=== PATIENT | male | born 1940 | race Caucasian/White ===

== ENCOUNTER → 2018-08-08 12:48 | Outpatient (CLI) | payer MEDICARE, OTHER, SELFPAY ==
--- NOTE | 2018-08-08 | DI.RAD.S_ITS ---
PROCEDURE: XR LUMBAR SPINE 2-3V INDICATIONS: DORSALGIA TECHNIQUE: 3 views of the lumbar spine were acquired. COMPARISON: [facility], CR, XR THORACIC SPINE 3V, 08/08/2018, 12:59. FINDINGS: Bones: 5 [id number] vertebrae are present. There is normal bony alignment. No vertebral body compression fractures. No suspicious bony lesions. The degenerative disc disease and facet osteoarthritis along the lumbosacral line is relatively mild in severity over the upper two thirds but moderate to moderately severe over the lower third and best seen at L4-5 and L5-S1. Slight retrolisthesis of L5 on S1 is associated, grade 1, due to ligamentous laxity. Soft tissues: Overlying bowel gas pattern is normal. No suspicious soft tissue calcifications. IMPRESSION: Low lumbosacral spine moderately severe L4-5 and L5-S1 degenerative disc disease and facet osteoarthritis with likelihood of significant spinal and foraminal stenosis at those 2 levels. Dictated by: Keyshawn Melton M.D. on 08/08/2018 at 15:20 Approved by: Keyshawn Melton M.D. on 08/08/2018 at 15:21
--- NOTE | 2018-08-08 | DI.RAD.S_ITS ---
PROCEDURE: XR THORACIC SPINE 3V INDICATIONS: DORSALGIA TECHNIQUE: 3 views of the thoracic spine were acquired. COMPARISON: None. FINDINGS: Bones: No fractures or dislocations. No suspicious bony lesions. 12 pairs of ribs are noted, and appear intact where visualized. Soft tissues: No paravertebral stripe thickening. IMPRESSION: There is a moderate degree of degenerative disc disease and facet osteoarthritis along the lumbosacral spine, and no sign of compression fracture or subluxation. Dictated by: Keyshawn Melton M.D. on 08/08/2018 at 15:20 Approved by: Keyshawn Melton M.D. on 08/08/2018 at 15:20
== END ==
PROVIDERS: PCP Physician Assistant; Visit Provider Physician Assistant
DX: M54.89 Other dorsalgia (principal); M51.37 Other intervertebral disc degeneration, lumbosacral region; M47.817 Spondylosis without myelopathy or radiculopathy, lumbosacral region
CPT/HCPCS: 72072; 72100

== ENCOUNTER → 2019-01-08 09:54 | Outpatient (CLI) | payer MEDICARE, OTHER, SELFPAY ==
--- NOTE | 2019-01-08 10:13 | DI.CT.S_ITS ---
PROCEDURE: CT MASTOID TEMPORAL INDICATIONS: MRI demonstrated mesial fluid accumulation, left greater than right. Unspecified disorder of middle ear and mastoid, bi COMPARISON: [facility], MR, BRAIN WITHOUT CONTRAST, 05/02/2017, 7:37. TECHNIQUE: Noncontrast 0.6 mm thick direct axial and coronal sections acquired through each temporal bone separately. FINDINGS: Image quality: Excellent. RIGHT: External auditory canal: Canal has a normal appearance. Middle ear: The middle ear structures, including the ossicles and tympanic membrane, appear normal. No abnormal fluid or soft tissue density. Inner ear: Inner ear is normally formed and appears unremarkable. Facial nerve appears normal throughout is course. Mastoids: Mastoid air cells are clear. LEFT: External auditory canal: Canal has a normal appearance. Middle ear: The middle ear structures, including the ossicles and tympanic membrane, appear normal. No abnormal fluid or soft tissue density. Inner ear: Inner ear is normally formed and appears unremarkable. Facial nerve appears normal throughout its course. Mastoids: Mastoid air cells are clear. MISCELLANEOUS: Visualized surrounding bones appear unremarkable. Visualized intracranial structures, including the cerebellopontine angle cisterns, appear normal. Atherosclerotic calcification is noted. IMPRESSION: The abnormal mastoid fluid that was seen on the prior MRI is no longer seen. Dictated by: Jose E Morales M.D. on 01/08/2019 at 10:33 Approved by: Jose E Morales M.D. on 01/08/2019 at 10:36
== END ==
PROVIDERS: PCP Internal Medicine; Visit Provider Internal Medicine
DX: H74.93 Unspecified disorder of middle ear and mastoid, bilateral (principal)
CPT/HCPCS: 70480

== ENCOUNTER → 2019-05-15 13:50 | Outpatient (CLI) | payer MEDICARE, OTHER, SELFPAY ==
--- NOTE | 2019-05-15 | DI.US.S_ITS ---
PROCEDURE: US ABDOMEN LIMITED INDICATIONS: BILATERAL INGUINAL HERNIA WITHOUT OBSTRUCTION TECHNIQUE: Real-time focused scanning was performed of the inguinal region, with image documentation. COMPARISON: [facility], CT, KIDNEY/ URETER/BLADDER, 08/25/2015, 8:55. FINDINGS: Within the right groin, at the area of the palpable lump, there is a fluid collection seen that indicates that the abdominal ascites. Also the right groin, there is a fat-containing reducible direct inguinal hernia. Within the left groin, there is a fat-containing, reducible indirect hernia. IMPRESSION: At the area of the palpable lump within the right groin, there is a fluid collection seen, which is attributed to herniated ascites fluid. Bilateral reducible fat-containing inguinal hernias are also seen. If it would be helpful for clinical management decision making, please consider a dedicated CT of the pelvis, with IV and oral contrast for further evaluation. Dictated by: Jose E Morales M.D. on 05/15/2019 at 16:08 Approved by: Jose E Morales M.D. on 05/15/2019 at 16:11
== END ==
PROVIDERS: PCP Internal Medicine; Visit Provider Specialist
DX: K40.20 Bilateral inguinal hernia, without obstruction or gangrene, not specified as recurrent (principal)
CPT/HCPCS: 76705

== ENCOUNTER → 2019-12-26 13:05 | Outpatient (CLI) | payer MEDICARE, OTHER, SELFPAY ==
[2019-12-26 15:28] LABS: Prostate Specific Antigen 1.31 ng/mL (0.10-4.00)
== END ==
PROVIDERS: PCP Internal Medicine; Referring Provider Specialist; Visit Provider Specialist
DX: R97.20 Elevated prostate specific antigen [PSA] (principal)
CPT/HCPCS: 36415; 84153

== ENCOUNTER → 2020-01-09 10:13 | Outpatient (CLI) | payer MEDICARE, OTHER, SELFPAY ==
--- NOTE | 2020-01-09 | DI.RAD.S_ITS ---
PROCEDURE: XR HIP W PEL IF DONE LT 2V INDICATIONS: LEFT HIP PAIN TECHNIQUE: AP pelvis with lateral view(s) of the left hip(s). COMPARISON: None. FINDINGS: Bones: No fractures or dislocations. Pelvic ring appears intact. No suspicious bony lesions. There is asymmetric hip joint osteoarthritis, moderate on the right and mild on the left Soft tissues: The visualized bowel gas pattern is normal. No suspicious soft tissue calcifications. IMPRESSION: Asymmetric right greater than left hip joint osteoarthritis, no trauma found. Dictated by: Keyshawn Melton M.D. on 01/09/2020 at 10:55 Approved by: Keyshawn Melton M.D. on 01/09/2020 at 10:56
== END ==
PROVIDERS: PCP Internal Medicine; Referring Provider Internal Medicine; Visit Provider Internal Medicine
DX: M25.552 Pain in left hip (principal); M16.0 Bilateral primary osteoarthritis of hip
CPT/HCPCS: 73502

== ENCOUNTER → 2020-07-01 12:45 | Outpatient (CLI) | payer MEDICARE, OTHER, SELFPAY ==
[2020-07-01 17:07] LABS: Prostate Specific Antigen 1.62 ng/mL (0.10-4.00)
== END ==
PROVIDERS: PCP Student in an Organized Health Care Education/Training Program; Referring Provider Specialist; Visit Provider Specialist
DX: N40.0 Benign prostatic hyperplasia without lower urinary tract symptoms (principal)
CPT/HCPCS: 36415; 84153; 87086

== ENCOUNTER → 2023-05-04 11:23 | Outpatient (CLI) | payer MEDICARE, OTHER, SELFPAY ==
--- NOTE | 2023-05-04 11:28 | DI.RAD.S_ITS ---
PROCEDURE: XR CERVICAL SPINE 2V OR 3V INDICATIONS: NECK SHOULDER PAIN TECHNIQUE: 30 view(s) of the cervical spine were acquired. COMPARISON: None. FINDINGS: Bones: No fractures or dislocations to the C7 level. Straightening of normal cervical lordosis. There are multilevel degenerative changes of the cervical spine with facet and uncovertebral arthropathy, disc height loss with degenerative endplate changes and spurring. This is most pronounced at C5-C6. The lateral masses of C1 appear intact on the odontoid view. No suspicious bony lesions. Soft tissues: No prevertebral soft tissue swelling. Median sternotomy wires. Atherosclerotic vascular calcifications. IMPRESSION: Multilevel degenerative changes of the cervical spine, most pronounced at C5-C6. Dictated by: Jimmy Asif M.D. on 05/04/2023 at 13:07 Approved by: Jimmy Asif M.D. on 05/04/2023 at 13:10
--- NOTE | 2023-05-04 11:28 | DI.RAD.S_ITS ---
PROCEDURE: XR SHOULDER RT MIN 2V INDICATIONS: NECK SHOULDER PAIN TECHNIQUE: 3 views of the shoulder were acquired. COMPARISON: None. FINDINGS: Bones: No fractures or dislocations. Moderate acromioclavicular and mild glenohumeral joint degeneration. No suspicious bony lesions. Visualized ribs appear intact. Soft tissues: No suspicious soft tissue calcifications. Atherosclerotic vascular calcifications. Median sternotomy wires. Surgical clips projecting over the mediastinum. IMPRESSION: No acute osseous abnormalities. Moderate acromioclavicular and mild glenohumeral joint osteoarthritis. Dictated by: Jimmy Asif M.D. on 05/04/2023 at 13:01 Approved by: Jimmy Asif M.D. on 05/04/2023 at 13:02
== END ==
LOC: RAD 11:25
PROVIDERS: PCP Internal Medicine; Referring Provider Physician Assistant; Visit Provider Physician Assistant
DX: M43.6 Torticollis (principal); M25.611 Stiffness of right shoulder, not elsewhere classified; M19.011 Primary osteoarthritis, right shoulder; M47.812 Spondylosis without myelopathy or radiculopathy, cervical region
CPT/HCPCS: 72040; 73030

== ENCOUNTER 2024-07-10 10:42 | Emergency (ER) | payer MEDICARE, OTHER, SELFPAY ==
[2024-07-10] VITALS (17 sets, daily range): BP systolic 108–142; BP diastolic 58–92; PULSE 66–124; RESP 14–30; TEMP 36.3; O2SAT 96–100; BMI 24.3
--- NOTE | 2024-07-10 11:15 | DI.RAD.S_ITS ---
PROCEDURE: XR CHEST 1V INDICATIONS: chest pain TECHNIQUE: One view of the chest was acquired. COMPARISON: None. FINDINGS: Surgical changes and devices: Median sternotomy wires are seen. Surgical clips also noted. Lungs and pleura: Mild pulmonary vascular congestion. No definite focal infiltrate. No pleural effusions or pneumothorax. Mediastinum: Mediastinal contours appear normal. Heart size is normal. Bones and chest wall: No suspicious bony lesions. Overlying soft tissues appear unremarkable. IMPRESSION: Mild congestion. No focal infiltrate, pleural effusion or pneumothorax. Dictated by: Edwin Morris M.D. on 07/10/2024 at 12:11 Approved by: Edwin Morris M.D. on 07/10/2024 at 12:12
--- NOTE | 2024-07-10 11:15 | EKG_ITS ---
[id number] [place] [address] Test Date: 2024-07-10 Pat Name: Thanh Starr Department: Room: Gender: Male District Captain: DAVONTE : 1940 Requested By: Order Number: [id number] Reading MD: José Torres MD Measurements Intervals [place] Rate: 104 P: PA: QRS: 64 QRSD: 114 T: 243 QT: 392 QTc: 515 Interpretive Statements Atrial fibrillation with rapid ventricular response (new) Incomplete left bundle branch block (new) ST & T wave abnormality, consider inferolateral ischemia Electronically Signed On 07-10-2024 16:41:08 PDT by José Torres MD
[2024-07-10 11:53] LABS: Add Manual Diff / Slide Review NO; Basophils Absolute Auto 100 /uL (0-100); Basophils Percent Auto 0.8 % (0-2); Eosinophils Absolute Auto 0 /uL (0-450); Hematocrit 38.7 % (41-53); Hemoglobin 12.8 g/dL (13.5-17.5); Lymphocytes Absolute Auto 300 /uL (1100-4500); Lymphocytes Percent Auto 2.2 % (25-40); Mean Corpuscular HGB Conc 33.1 % (30-36); Mean Corpuscular Hemoglobin 31.4 PG (26-34); Mean Corpuscular Volume 94.9 fL (80-100); Monocytes Absolute Auto 1000 /uL (0-900); Monocytes Percent Auto 6.4 % (3-14); Neutrophils Absolute Auto 14200 /uL (1500-7000); Neutrophils Percent Auto 90.6 % (50-75); Platelet Count 391 X10^3/uL (150-400); Red Blood Cell Count 4.08 X10^6/uL (4.5-5.9); Red Cell Distribution Width 14.7 % (11.6-14.8); White Blood Cell Count 15.7 X10^3/uL (4.5-11.0)
--- NOTE | 2024-07-10 11:58 | ED_ITS ---
HPI - General Adult General Chief complaint: Abdominal Pain Stated complaint: Severe Stomach pain Time Seen by Provider: 07/10/24 11:43 History of Present Illness HPI narrative: 83-year-old gentleman history of atrial fibrillation currently not anticoagulated and rate controlled with metoprolol, peritoneal dialysis, coronary disease with stent most recently placed in March of 2024 Rudy Rowe, heart failure with echocardiogram in April of this year showing an ejection fraction at 45-50% Presents complaining of nausea and vomiting vomiting for the last 12 hours. He states he is not having chest pain has lots of gas that he is passing from below. He has not had any blood in his vomitus or stool. He was discharged from [facility] on May 23 after having a lower GI bleed. He had an EGD at that time that showed gastritis duodenitis and esophagitis no. Her continued with his home peritoneal dialysis when hospitalized, started on Brilinta therapy for his recent drug-eluting stent in March of 2024. He was given iron infusions and instructed to follow up with Nephrology. He has not complaining of fevers, cough, no chest pain, does not sense that he is tachycardic, no increase in lower extremity edema, he did do his usual peritoneal dialysis last night Related Data Home Medications Medication Instructions Recorded Confirmed aspirin 81 mg tablet,delayed 81 mg PO DAILY 01/16/20 08/05/20 release (Adult Low Dose Aspirin) atorvastatin 40 mg tablet 40 mg PO DAILY 01/16/20 08/05/20 hydralazine 50 mg tablet 50 mg PO TID 01/16/20 08/05/20 isosorbide mononitrate 60 mg 60 mg PO DAILY 01/16/20 08/05/20 tablet,extended release 24 hr losartan 100 mg tablet 100 mg PO DAILY 01/16/20 08/05/20 metoprolol succinate 100 mg 100 mg PO DAILY 01/16/20 08/05/20 tablet,extended release 24 hr Allergies Allergy/AdvReac Type Severity Reaction Status Date / Time SEAFOOD Allergy Unknown Uncoded 07/10/24 12:54 Review of Systems Review of Systems Narrative: Pertinent positive and negative findings as per HPI Patient History Medical History Peritoneal dialysis catheter in place End stage renal failure on dialysis Prostate cancer Prostate cancer UTI (urinary tract infection) Male erectile disorder End stage renal disease Surgical History H/O radical retropubic prostatectomy Social History Smoking Status: Never smoker Smoking Status: Never smoker Exam Initial Vital Signs Initial Vital Signs: Vital Signs Pulse Rate 66 07/10/24 10:54 Pulse Oximetry 99 07/10/24 10:54 General: Chronically ill-appearing, in no acute distress. Able to give a complete and coherent history. HEENT: Moist mucous membranes, normal sclera with reactive pupils, Respiratory: Lungs with minor basilar crackles, no significant wheeze, fall and symmetrical air movement, no rhonchi Cardiac: Irregular, tachycardic no obvious murmurs Abdomen: Soft, mild distention, he does not have significant abdominal pain, dialysis catheter site looks appropriate. Peritoneal fluid is obtained through the peritoneal dialysis catheter Skin: Pale, reasonably perfused Neurologic: Grossly neurologically intact with no obvious asymmetries or abnormalities Extremities: No trauma, no lower extremity Psych: Cooperative, appropriate insight and affect Course Orders Ordered: Discontinued Medications Hydromorphone HCl (Hydromorphone 0.5 Mg Inj) 0.5 mg IV Q15MIN PRN PRN Reason: Pain, Last Admin: 07/10/24 14:02 Dose: 0.5 mg Documented By: CORRY Magnesium Sulfate (Magnesium Sulfate) 2 gm in 50 mls @ 150 mls/hr IV NOW ONE Stop: 07/10/24 12:46 Last Infusion: 07/10/24 13:19 Dose: Infused Documented By: CORRY Co-signed By: MACK Admin: 07/10/24 12:55 Dose: 150 mls/hr Documented By: CORRY Co-signed By: IDANIA POTASSIUM CHLORIDE IN WATER (Potassium Cl 10 Meq/100 Ml Karena) 10 meq in 100 mls @ 100 mls/hr IV Q1H JUSTA Stop: 07/10/24 16:29 Last Infusion: 07/10/24 16:26 Dose: 100 mls/hr Documented By: Admin: 07/10/24 16:11 Dose: 100 mls/hr Documented By: Infusion: 07/10/24 16:11 Dose: Infused Documented By: Admin: 07/10/24 15:11 Dose: 100 mls/hr Documented By: Infusion: 07/10/24 15:11 Dose: Infused Documented By: Admin: 07/10/24 14:15 Dose: 100 mls/hr Documented By: Infusion: 07/10/24 14:05 Dose: Infused Documented By: Admin: 07/10/24 13:05 Dose: 100 mls/hr Documented By: CORRY Cefepime HCl 2 gm/ Sodium (Chloride) 100 mls @ 200 mls/hr IV NOW ONE Stop: 07/10/24 12:28 Last Infusion: 07/10/24 13:40 Dose: Infused Documented By: Admin: 07/10/24 13:05 Dose: 200 mls/hr Documented By: CORRY Vancomycin HCl 1,000 mg/ (Sodium Chloride) 250 mls @ 250 mls/hr IV NOW ONE Stop: 07/10/24 13:44 Last Admin: 07/10/24 15:02 Dose: Not Given Documented By: CORRY Vancomycin HCl 1,000 mg/ (Sodium Chloride) 250 mls @ 250 mls/hr IV NOW ONE Stop: 07/10/24 15:44 Last Infusion: 07/10/24 16:10 Dose: Infused Documented By: Admin: 07/10/24 15:01 Dose: 250 mls/hr Documented By: CORRY Metoprolol Tartrate (Metoprolol Ir 25 Mg Tablet) 25 mg PO NOW ONE Stop: 07/10/24 12:28 Last Admin: 07/10/24 12:54 Dose: 25 mg Documented By: CORRY Vancomycin HCl (Vancomycin Per Pharmacy) 1 request MISC NOW ONE Stop: 07/10/24 12:29 Last Admin: 07/10/24 15:16 Dose: Not Given Documented By: CORRY Vital Signs Vital signs: Vital Signs - 8 hr 07/10/24 10:54 07/10/24 11:00 07/10/24 11:12 Temperature 97.4 F L Pulse Rate 66 109 H 124 H Respiratory Rate 30 H 20 Blood Pressure 142/92 H Pulse Oximetry 99 Oxygen Delivery Method Room Air 07/10/24 11:30 07/10/24 12:00 07/10/24 12:30 Temperature Pulse Rate 98 H 102 H 99 H Respiratory Rate 30 H 19 Blood Pressure Pulse Oximetry 99 98 97 Oxygen Delivery Method 07/10/24 12:41 07/10/24 12:41 07/10/24 13:00 Temperature Pulse Rate 103 H 106 H Respiratory Rate 14 Blood Pressure 115/58 L Pulse Oximetry Oxygen Delivery Method 07/10/24 13:30 07/10/24 13:41 07/10/24 13:41 Temperature Pulse Rate 96 H 97 H Respiratory Rate 17 20 Blood Pressure 108/64 Pulse Oximetry 100 100 Oxygen Delivery Method 07/10/24 13:43 07/10/24 13:43 Temperature Pulse Rate 94 H Respiratory Rate 15 Blood Pressure 111/66 Pulse Oximetry 100 Oxygen Delivery Method Medical Decision Making Lab Data 07/10/24 11:40 07/10/24 11:40 Labs: Lab Results 07/10/24 07/10/24 07/10/24 Range/Units 11:40 12:05 13:46 WBC 15.7 H (4.5-11.0) X10^3/uL RBC 4.08 L (4.5-5.9) X10^6/uL Hgb 12.8 L (13.5-17.5) g/dL Hct 38.7 L (41-53) % MCV 94.9 (80-100) fL MCH 31.4 (26-34) PG MCHC 33.1 (30-36) % RDW 14.7 (11.6-14.8) % Plt Count 391 (150-400) X10^3/uL Neut % (Auto) 90.6 H (50-75) % Lymph % (Auto) 2.2 L (25-40) % [place] % (Auto) 6.4 (3-14) % Eos % (Auto) 0.0 L (2-4) % Baso % (Auto) 0.8 (0-2) % Neut # (Auto) 03559 H (2162-3688) /uL Lymph # (Auto) 300 L (8324-0224) /uL [place] # (Auto) 1000 H (0-900) /uL Eos # (Auto) 0 (0-450) /uL Baso # (Auto) 100 (0-100) /uL PT 12.0 (9.4-12.5) SECONDS INR 1.1 (0.9-1.3) APTT 31 (25.1-36.5) SECONDS Sodium 129 L (137-145) mmol/L Potassium 3.0 L (3.4-5.1) mmol/L Chloride 92 L (98-107) mmol/L Carbon Dioxide 24 (22-32) mmol/L BUN 39 H (9-20) mg/dL Creatinine 8.14 H* (0.66-1.25) mg/dL Estimated GFR 6 L (>60) mL/min BUN/Creatinine Ratio 4.8 L (6-22) Glucose 91 (80-110) mg/dL Lactate 2.8 H 1.8 (0.7-2.1) mmol/L Calcium 7.8 L (8.4-10.2) mg/dL Magnesium 1.5 L (1.6-2.3) mg/dL Total Bilirubin 1.3 (0.2-1.3) mg/dL AST 41 (17-59) IU/L ALT 24 (<50) IU/L Alkaline Phosphatase 128 H (38-126) U/L Total Creatine Kinase 115 (55-170) U/L Troponin I 0.056 H (0.01-0.034) ng/mL NT-Pro-B Natriuret Pep 69274 H (<450) pg/mL Total Protein 5.9 L (6.3-8.2) g/dL Albumin 2.9 L (3.5-5.0) g/dL Globulin 3.0 (1.7-4.1) g/dL Albumin/Globulin Ratio 1.0 (1.0-2.8) Lipase 521 H (23-300) U/L Fluid Color Yellow Fluid Appearance Cloudy Fluid RBC 2250 /uL Fld Tot Nucleated Cell 5535 /uL Fluid Neutrophils % 56 % Fluid Lymphocytes % 44 % Body Fluid Clot No clots present Imaging Data CT scan - abdomen/pelvis: Radiologist's Impression: PROCEDURE: CT ABDOMEN PELVIS W CON INDICATIONS: sepsis, pancreatitis, acute peritonitis TECHNIQUE: After the administration of intravenous contrast, axial sections acquired from the lung bases to the pubic symphysis. Coronal and sagittal reformats were performed. For radiation dose reduction, the following was used: automated exposure control, adjustment of mA and/or kV according to patient size. COMPARISON: None. FINDINGS: Image quality: Diagnostic. Lower Chest: Small bilateral pleural effusions with adjacent atelectasis. Cardiomegaly. Severe coronary artery calcifications. ABDOMEN: Liver: No solid mass. Gallbladder: Layering gallstones. No gallbladder wall thickening is seen. Biliary ducts: No biliary dilation. Pancreas: No ductal dilation. Spleen: The majority the spleen is hypoenhancing. Adrenal Glands: No adrenal nodules. Kidneys and Ureters: No hydronephrosis. Renal cortical thinning. No solid mass. Multiple cysts, some of which demonstrate thick wall calcifications or septations. Some of these are indeterminate, for example at the lower pole the left kidney there is a partially exophytic lesion measuring approximately 2.4 x 1.4 cm (2/81) and along the midpole (2/65). Additional high-density renal lesions are present. Stomach and Bowel: Normal colonic caliber, without significant wall thickening. Peritoneum: Small volume ascites. Possible peritoneal thickening within the pelvis posteriorly (2/136) Peritoneal dialysis catheter within the pelvis. Diffuse mesenteric edema. No free air. Ventral Wall: No significant ventral hernia. Abdominal Nodes: No retroperitoneal or mesenteric adenopathy by size criteria. Vessels: Aorta and inferior vena cava are normal in size. Significant atherosclerotic vascular calcifications. PELVIS: Pelvic Organs: Unremarkable. Bladder: No bladder wall thickening, accounting for underdistention. Pelvic Nodes: No enlarged lymph nodes. Miscellaneous: Small bilateral fat containing inguinal hernias are seen. Bones: No aggressive osseous abnormality. Degenerative changes of the spine. Decreased osseous mineralization. IMPRESSION: 1. Small volume ascites, more than expected for peritoneal dialysis. Possible mild peritoneal thickening in the pelvis, the remainder of the peritoneum does not appear thickened or enhancing. Correlate for signs of peritonitis. 2. No evidence of acute pancreatitis. 3. Large portions of the spleen are hypoenhancing, concerning for infarct. 4. Multiple indeterminate renal lesions. Consider nonurgent ultrasound or further evaluation with renal mass protocol MRI or CT. 5. Cardiomegaly. Significant atherosclerotic vascular calcifications including severe coronary artery calcifications. 6. Small bilateral pleural effusions with adjacent atelectasis. 7. Cholelithiasis without evidence of gallbladder wall thickening. 8. Please see above for additional findings. Dictated by: Jimmy Asif M.D. on 07/10/2024 at 14:06 MDM Narrative Medical decision making narrative: CC: Vomiting for 12 hours Complicating co-morbidities: Peritoneal dialysis, recent lower GI bleed, coronary artery disease most recent stent in March Data collected from: patient Medical records reviewed: Discharge summary from May 22 from [facility] is reviewed and summarized in the HPI above Differential considered: Viral syndrome, peritonitis, partial bowel obstruction, pancreatitis, sepsis doubt pneumonia or coronary events at this time Exam documented above, pertinent findings include: Patient was somewhat pale, his belly is not significantly tender he does have some peritoneal fluid/ascites that is notable without significant distention. No lower extremity edema. He is in his baseline AFib ranging 110-150 Lab Test results independently reviewed as above. Pertinent findings: CBC shows significant leukocytosis at 15.7 with 91% neutrophils. Most recent H and H is 12.8 and 38.7 which is reassuring PT and PTT are both appropriate Chemistries with multiple abnormalities including low sodium at 1:29 a.m., low potassium at 3.0, BUN 39, creatinine at 8.4, calcium low at 7.8 Lipase is elevated at 521 Lactic acid is elevated at 2.8, repeat is 1.8 Peritoneal fluid is yellow, cloudy, 2250 red cells, 5535 nucleated cells 56% neutrophils 44% lymphocytes -this is consistent with peritonitis Independently reviewed EKG: AFib at a rate of 104 nonspecific STT wave changes Imaging studies independently reviewed: Chest x-ray does not show infiltrates or dramatic cardiomegaly CT scan of the abdomen shows more ascites than would be expected for peritoneal dialysis with possible mild peritoneal thickening in the pelvis. No signs of acute pancreatitis. Gallstones without cholecystitis, multiple renal lesions consistent with his need for peritoneal dialysis, small bilateral pleural effusions Hypoenhancing areas of the spleen with questions of infarct, this does not correlate with clinical exam Consultations: Discussion with Nephrology,Dr Mann to confirm that replacing electrolytes, antibiotics for peritoneal infections and CT scan with contrast are all going to be reasonable portion of his initial workup Treatments: Oral metoprolol, IV potassium, IV magnesium, vancomycin, cefepime Discussion: 83-year-old gentleman with increased nausea and vomiting, concern for infection with developing sepsis without hypotension. Initial source of concern is peritoneal fluid, possibility of pancreatitis is entertained. Patient is started on antibiotics as above, electrolyte replacements, will use oral metoprolol to see if we can slow his heart rate if not will progress to IV metoprolol, at this time he has not showing signs of severe congestive heart failure but we will hold on fluids as his blood pressure is a bit on the high side. Care is reviewed with Dr. Walker, hospitalist at [facility], accepts the patient. We will arrange for ALS transfer Discharge Plan Departure Patient Disposition: [facility] Clinical Impression: Cloudy peritoneal dialysis effluent, Acute hypokalemia, Hypomagnesemia Peritonitis associated with peritoneal dialysis Qualifiers: Encounter type: initial encounter Qualified Code(s): T85.71XA - Infection and inflammatory reaction due to peritoneal dialysis catheter, initial encounter Leukocytosis Qualifiers: Leukocytosis type: unspecified Qualified Code(s): D72.829 - Elevated white blood cell count, unspecified Nausea & vomiting Qualifiers: Vomiting type: unspecified Qualified Code(s): R11.2 - Nausea with vomiting, unspecified Prescriptions: No Action isosorbide mononitrate 60 mg tablet extended release 24 hr 60 mg PO DAILY atorvastatin 40 mg tablet 40 mg PO DAILY metoprolol succinate 100 mg tablet extended release 24 hr 100 mg PO DAILY aspirin [Adult Low Dose Aspirin] 81 mg tablet,delayed release (DR/EC) 81 mg PO DAILY losartan 100 mg tablet 100 mg PO DAILY hydralazine 50 mg tablet 50 mg PO TID Referrals: Berna Randolph MD [Primary Care Provider] -
[2024-07-10 12:01] LABS: INR 1.1 (0.9-1.3)
[2024-07-10 12:04] LABS: PTT Partial Thromboplastin Tim 31 SECONDS (25.1-36.5)
[2024-07-10 12:06] LABS: Alanine Aminotransferase 24 IU/L (<50); Albumin 2.9 g/dL (3.5-5.0); Alkaline Phosphatase 128 U/L (38-126); Aspartate Aminotransferase 41 IU/L (17-59); BUN Creatinine Ratio 4.8 (6-22); Bilirubin Total 1.3 mg/dL (0.2-1.3); Blood Urea Nitrogen 39 mg/dL (9-20); Calcium 7.8 mg/dL (8.4-10.2); Carbon Dioxide 24 mmol/L (22-32); Chloride 92 mmol/L (98-107); Creatine Kinase 115 U/L (55-170); Estimated Glomerular Filt Rate 6 mL/min (>60); Glucose 91 mg/dL (80-110); Lactate (Lactic Acid) 2.8 mmol/L (0.7-2.1); Lipase 521 U/L (23-300); Magnesium 1.5 mg/dL (1.6-2.3); Sodium 129 mmol/L (137-145); Total Protein 5.9 g/dL (6.3-8.2)
[2024-07-10 12:07] LABS: HEMOLYSIS 67 (0-50)
--- NOTE | 2024-07-10 12:31 | PC.NURSE ---
1130: L Hand #22 PIV placed, flushes well, +BR just slow flowing Previous RN multiple attempts/unsuccessful placement. Patient has hx of vascular surgery/vein removals 1200: Unable to place second PIV on Right arm 1205: Provider @ Bedside, collected Peritoneal Dialysis Fluid from PD drain tubing
[2024-07-10 12:43] LABS: NT-proBNP (BNP-Adult 18+) 67600 pg/mL (<450)
[2024-07-10 12:44] LABS: Troponin I 0.056 ng/mL (0.01-0.034)
[2024-07-10 12:47] LABS: Body Fluid Red Blood Cells 2250 /uL; Body Fluid Tot Nucleated Cells 5535 /uL
[2024-07-10 12:49] LABS: Body Fluid Appearance CLOUDY; Body Fluid Color YELLOW
[2024-07-10 12:50] LABS: Body Fluid Clotted? NO CLOTS PRESENT
[2024-07-10] MEDS: METOPROLOL IR 25 MG TABLET PO (12:54)
[2024-07-10] MEDS: MAGNESIUM SULFATE 2 GM/50 ML PIGGYBACK IV (12:55)
[2024-07-10 13:00] LABS: Lymphocytes Body Fluid 44 %; Neutrophils Body Fluid 56 %
[2024-07-10] MEDS: CEFEPIME 2 GM in SODIUM CHLORIDE 0.9% 100 ML IV (13:05)
[2024-07-10] MEDS: POTASSIUM CHLORIDE IN WATER 10 MEQ/100 ML PIGGYBACK 100 MEQ IV ×4 (13:05→16:11)
--- NOTE | 2024-07-10 13:18 | DI.CT.S_ITS ---
PROCEDURE: CT ABDOMEN PELVIS W CON INDICATIONS: sepsis, pancreatitis, acute peritonitis TECHNIQUE: After the administration of intravenous contrast, axial sections acquired from the lung bases to the pubic symphysis. Coronal and sagittal reformats were performed. For radiation dose reduction, the following was used: automated exposure control, adjustment of mA and/or kV according to patient size. COMPARISON: None. FINDINGS: Image quality: Diagnostic. Lower Chest: Small bilateral pleural effusions with adjacent atelectasis. Cardiomegaly. Severe coronary artery calcifications. ABDOMEN: Liver: No solid mass. Gallbladder: Layering gallstones. No gallbladder wall thickening is seen. Biliary ducts: No biliary dilation. Pancreas: No ductal dilation. Spleen: The majority the spleen is hypoenhancing. Adrenal Glands: No adrenal nodules. Kidneys and Ureters: No hydronephrosis. Renal cortical thinning. No solid mass. Multiple cysts, some of which demonstrate thick wall calcifications or septations. Some of these are indeterminate, for example at the lower pole the left kidney there is a partially exophytic lesion measuring approximately 2.4 x 1.4 cm (2/81) and along the midpole (2/65). Additional high-density renal lesions are present. Stomach and Bowel: Normal colonic caliber, without significant wall thickening. Peritoneum: Small volume ascites. Possible peritoneal thickening within the pelvis posteriorly (2/136) Peritoneal dialysis catheter within the pelvis. Diffuse mesenteric edema. No free air. Ventral Wall: No significant ventral hernia. Abdominal Nodes: No retroperitoneal or mesenteric adenopathy by size criteria. Vessels: Aorta and inferior vena cava are normal in size. Significant atherosclerotic vascular calcifications. PELVIS: Pelvic Organs: Unremarkable. Bladder: No bladder wall thickening, accounting for underdistention. Pelvic Nodes: No enlarged lymph nodes. Miscellaneous: Small bilateral fat containing inguinal hernias are seen. Bones: No aggressive osseous abnormality. Degenerative changes of the spine. Decreased osseous mineralization. IMPRESSION: 1. Small volume ascites, more than expected for peritoneal dialysis. Possible mild peritoneal thickening in the pelvis, the remainder of the peritoneum does not appear thickened or enhancing. Correlate for signs of peritonitis. 2. No evidence of acute pancreatitis. 3. Large portions of the spleen are hypoenhancing, concerning for infarct. 4. Multiple indeterminate renal lesions. Consider nonurgent ultrasound or further evaluation with renal mass protocol MRI or CT. 5. Cardiomegaly. Significant atherosclerotic vascular calcifications including severe coronary artery calcifications. 6. Small bilateral pleural effusions with adjacent atelectasis. 7. Cholelithiasis without evidence of gallbladder wall thickening. 8. Please see above for additional findings. Dictated by: Jimmy Asif M.D. on 07/10/2024 at 14:06 Approved by: Jimmy Asif M.D. on 07/10/2024 at 14:17
[2024-07-10 13:25] LABS: Reflexed Lactate in 2 Hours Y
[2024-07-10] MEDS: HYDROMORPHONE 0.5 MG INJ IV (14:02)
[2024-07-10 14:05] LABS: Lactate 2HR (Lactic Acid Rflx) 1.8 mmol/L (0.7-2.1)
[2024-07-10] MEDS: VANCOMYCIN 1,000 MG in SODIUM CHLORIDE 0.9% 250 ML 250 MG IV (15:01)
--- NOTE | 2024-07-10 15:12 | PC.NURSE ---
pt states pain and n/v have resolved. a&ox4.
== END 2024-07-10 16:37 | disposition short-term general hospital (02) ==
PROVIDERS: Emergency Medicine; Emergency Provider Emergency Medicine; PCP Internal Medicine
DX: T85.71XA Infection and inflammatory reaction due to peritoneal dialysis catheter, initial encounter (principal); E83.42 Hypomagnesemia; E87.6 Hypokalemia; R11.2 Nausea with vomiting, unspecified; R88.0 Cloudy (hemodialysis) (peritoneal) dialysis effluent; D72.829 Elevated white blood cell count, unspecified; Z99.2 Dependence on renal dialysis; I48.20 Chronic atrial fibrillation, unspecified; I44.7 Left bundle-branch block, unspecified; R07.9 Chest pain, unspecified; N18.6 End stage renal disease
CPT/HCPCS: 36415; 71045; 74177; 80053; 82550; 83605; 83690; 83735; 83880; 84484; 85025; 85610; 85730; 87040; 87070; 87075; 87077; 87205; 89051; 93005; 93010; 96365; 96366; 96367; 96368; 96375; 99284; 99285; J0692; J1171; J3475; Q9967